=== PATIENT | male | born 1945 | race Caucasian/White ===

== ENCOUNTER → 2017-12-25 07:26 | Outpatient (CLI) | payer MEDICARE, SELFPAY ==
[2017-12-25 09:43] LABS: Alanine Aminotransferase 29 IU/L (21-72); Albumin 4.2 g/dL (3.5-5.0); Albumin Globulin Ratio 1.7 (1.0-2.8); Alkaline Phosphatase 89 U/L (38-126); Aspartate Aminotransferase 33 IU/L (17-59); Bilirubin Total 0.4 mg/dL (0.2-1.3); Blood Urea Nitrogen 25 mg/dL (9-20); Calcium 9.3 mg/dL (8.4-10.2); Carbon Dioxide 30 mmol/L (22-32); Chloride 105 mmol/L (98-107); Estimated Glomerular Filt Rate > 60.0 mL/min (>60); Globulin 2.5 g/dL (1.7-4.1); Glucose 91 mg/dL (80-110); HEMOLYSIS < 15 (0-50); Potassium 4.6 mmol/L (3.4-5.1); Sodium 142 mmol/L (137-145); Total Protein 6.7 g/dL (6.3-8.2)
== END ==
PROVIDERS: Visit Provider Physician Assistant
DX: B35.1 Tinea unguium (principal)
CPT/HCPCS: 36415; 80053

== ENCOUNTER 2018-05-13 08:20 | Day surgery (SDC) | payer MEDICARE, SELFPAY ==
[2018-05-13 08:37] VITALS: BMI 22.8
[2018-05-13 08:40] VITALS: BP 143/77; PULSE 69; RESP 15; TEMP 36.4; O2SAT 96
--- NOTE | 2018-05-13 09:14 | PM.HP.1 ---
History of Present Illness Date Patient Seen: 05/13/18 Time Patient Seen: 09:14 Chief complaint: COLONOSCOPY [id number] Narrative: History of adenomatous colon polyps Patient History Medical History Hypothyroidism (Acute) Social History household members: spouse Family & Social History Social History: household members spouse Meds Home Medications Medication Instructions Recorded Confirmed Type levothyroxine 100 mcg PO DAILY 05/13/18 05/13/18 History ranitidine HCl 150 mg PO BEDTIME 05/13/18 05/13/18 History Allergies Allergy/AdvReac Type Severity Reaction Status Date / Time No Known Drug Allergies Allergy Verified 05/13/18 08:36 Exam Vital Signs (past 8 hours): - 05/13/18 08:40 Temperature 97.5 F L Pulse Rate 69 Respiratory Rate 15 Blood Pressure 143/77 H Pulse Oximetry 96 Oxygen Delivery Method Room Air Narrative Exam Narrative: Oropharynx free of lesions Chest clear to auscultation percussion Cardiac exam reveals no S3 or murmur Assessment & Plan Assessment & Plan narrative: History of adenomatous colon polyps need for follow-up colonoscopy. Risks, benefits, alternatives have been explained
--- NOTE | 2018-05-13 09:15 | PM.OP.ENDO ---
Operative Date/Time/Diagnoses Date of procedure: 05/13/18 Time of procedure: 09:15 Pre-op diagnosis: See indications and findings Procedure & Clinicians Study performed: Colonoscopy Same procedure as scheduled: Yes Indications: History of adenomatous colon polyps Surgeon: Dashawn Lynn Procedure Notes Procedure in detail: After informed consent was obtained the patient was placed in left lateral decubitus position. The video colonoscope was introduced to the rectum slowly advanced to the cecum. Preparation was good. On slow withdrawal mucosa was carefully examined. The scope was removed. The patient tolerated procedure well. Blood loss none Complications none Sedation Total sedation time 23 min Fentanyl 150 mcg Versed 8 mg IV titration Findings Scattered left-sided diverticulosis, minor. Otherwise negative colonoscopy to cecum Patient should have follow-up colonoscopy in 5 years given his history of adenomatous colon polyps.
[2018-05-13] MEDS: MIDAZOLAM 5 MG/5 ML VIAL IV (09:53)
[2018-05-13] MEDS: fentaNYL 250 MCG/5 ML INJ IV (09:53)
[2018-05-13 10:31] VITALS: BP 99/62; PULSE 51; RESP 8
[2018-05-13 10:46] VITALS: BP 116/67; PULSE 51; RESP 10; O2SAT 96
[2018-05-13] MEDS: SODIUM CHLORIDE 0.9% 1,000 ML 21 ML IV (11:00)
[2018-05-13 11:01] VITALS: BP 110/75; PULSE 79; RESP 11; TEMP 36.6; O2SAT 96
--- NOTE | 2018-05-13 11:03 | SUR.PHASEI ---
stable pacu stay just very slow to wake up.
[2018-05-13 11:08] VITALS: BP 115/66; PULSE 51; RESP 13; TEMP 36.7; O2SAT 95
[2018-05-13 12:41] VITALS: BP 123/77; PULSE 50; TEMP 36.3; O2SAT 100
== END 2018-05-13 11:26 | disposition home or self-care (01) ==
PROVIDERS: PCP Internal Medicine; Visit Provider Internal Medicine Gastroenterology
PROC: 0DJD8ZZ Inspection of Lower Intestinal Tract, Via Natural or Artificial Opening Endoscopic (ICD-10-PCS; CPT 45378; principal; 2018-05-13 09:30)
DX: Z86.010 Personal history of colon polyps (principal); K57.30 Diverticulosis of large intestine without perforation or abscess without bleeding; E03.9 Hypothyroidism, unspecified
CPT/HCPCS: G0105; J2250; J3010

== ENCOUNTER → 2019-04-29 06:53 | Outpatient (CLI) | payer MEDICARE, SELFPAY ==
[2019-04-29 08:14] LABS: Add Manual Diff / Slide Review NO; Basophils Absolute Auto 100 /uL (0-100); Basophils Percent Auto 1.7 % (0-2); Eosinophils Absolute Auto 300 /uL (0-450); Eosinophils Percent Auto 4.6 % (2-4); Hematocrit 44.1 % (41-53); Hemoglobin 14.9 g/dL (13.5-17.5); Lymphocytes Absolute Auto 1700 /uL (1100-4500); Lymphocytes Percent Auto 25.7 % (25-40); Mean Corpuscular HGB Conc 33.7 % (30-36); Mean Corpuscular Hemoglobin 31.5 PG (26-34); Mean Corpuscular Volume 93.5 fL (80-100); Monocytes Absolute Auto 600 /uL (0-900); Monocytes Percent Auto 9.4 % (3-14); Neutrophils Absolute Auto 4000 /uL (1500-7000); Neutrophils Percent Auto 58.6 % (50-75); Platelet Count 241 X10^3/uL (150-400); Red Blood Cell Count 4.72 X10^6/uL (4.5-5.9); Red Cell Distribution Width 13.6 % (11.6-14.8); White Blood Cell Count 6.8 X10^3/uL (4.5-11.0)
[2019-04-29 08:28] LABS: Alanine Aminotransferase 14 IU/L (<50); Albumin 4.1 g/dL (3.5-5.0); Albumin Globulin Ratio 1.5 (1.0-2.8); Alkaline Phosphatase 81 U/L (38-126); Aspartate Aminotransferase 28 IU/L (17-59); Bilirubin Total 0.5 mg/dL (0.2-1.3); Blood Urea Nitrogen 23 mg/dL (9-20); Calcium 9.2 mg/dL (8.4-10.2); Carbon Dioxide 29 mmol/L (22-32); Chloride 102 mmol/L (98-107); Estimated Glomerular Filt Rate > 60.0 mL/min (>60); Globulin 2.8 g/dL (1.7-4.1); Glucose 93 mg/dL (80-110); HEMOLYSIS < 15 (0-50); Potassium 3.8 mmol/L (3.4-5.1); Sodium 137 mmol/L (137-145); Total Protein 6.9 g/dL (6.3-8.2)
== END ==
PROVIDERS: PCP Internal Medicine; Referring Provider Physician Assistant; Visit Provider Physician Assistant
DX: B35.1 Tinea unguium (principal)
CPT/HCPCS: 36415; 80053; 85025

== ENCOUNTER → 2020-02-09 11:51 | Outpatient (CLI) | payer MEDICARE, SELFPAY ==
--- NOTE | 2020-02-09 | DI.MRI.S_ITS ---
PROCEDURE: MR ANKLE RT WO CON INDICATIONS: Strain of unspecified muscle and tendon at ankle TECHNIQUE: Noncontrast sagittal T1 spin echo and T2 fast spin echo with fat saturation, axial proton density fast spin echo and T2 fast spin echo with fat saturation, coronal T1 spin echo and T2 fast spin echo with fat saturation through the ankle/hindfoot. COMPARISON: [facility] [place], CR, XR ANKLE 3 VIEWS WEIGHT BEARING RIGHT, 01/28/2020, 9:39. FINDINGS: Image quality: There is mild inhomogeneous fat saturation. Bones and joints: No bone marrow contusions or fractures. There is mild tibiotalar joint degeneration with mild osteophytosis. No hindfoot coalitions. No osteochondral lesions of the talar dome. No pathologic joint effusions. There is mild edema along the posterior aspect of the tibiotalar joint. Medial structures: The posterior tibialis, flexor digitorum longus, and flexor hallucis longus tendons are intact. There is a low-lying flexor hallucis longus muscle belly. The posterior tibial neurovascular bundle appears normal within the tarsal tunnel, without extrinsic mass effect. The deltoid and spring ligaments appear intact. Lateral structures: The anterior talofibular, calcaneofibular, and posterior talofibular ligaments appear intact. More superiorly, the anterior and posterior tibiofibular ligaments also appear intact, as is the intermalleolar ligament. The tibiofibular syndesmosis is normal in width at 2 mm or less. There is degeneration along the distal tibial fibular syndesmosis with mild osteophytosis. The peroneus longus and brevis tendons demonstrate normal location and morphology. Adjacent bony peroneal tubercle and retrotrochlear prominence are normal in size. The sinus tarsi demonstrates effacement of the normal fatty signal with mild edema and an associated multiloculated ganglion cyst extending laterally. The calcaneonavicular and calcaneocuboid components of the bifurcate ligament appear intact. The dorsal calcaneocuboid ligament appears intact. Anterior structures: The tibialis anterior, extensor hallucis longus, and extensor digitorum longus tendons appear intact. The dorsal talonavicular ligament appears intact. Posterior and plantar structures: Achilles tendon is intact. Medial and lateral bands of the plantar fascia are of normal thickness. No abductor digiti quinti muscle atrophy to suggest [place] neuropathy. IMPRESSION: 1. Mild tibiotalar joint degeneration with mild periarticular edema posteriorly. 2. Low lying muscle belly of the flexor hallucis longus is nonspecific but may be associated with posterior impingement in the appropriate clinical context. 3. Effacement of normal fatty signal in the sinus tarsi with mild edema and associated multi loculated ganglion cysts extending laterally. 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 Recommend correlation clinically. Dictated by: Maximus Armstrong M.D. on 02/09/2020 at 16:52 Approved by: Maximus Armstrong M.D. on 02/09/2020 at 17:05
== END ==
PROVIDERS: PCP Internal Medicine; Referring Provider Internal Medicine; Visit Provider Orthopaedic Surgery
DX: M19.071 Primary osteoarthritis, right ankle and foot (principal); M25.571 Pain in right ankle and joints of right foot
CPT/HCPCS: 73721

== ENCOUNTER → 2020-03-30 14:56 | Outpatient (ROUT) | payer MEDICARE, SELFPAY ==
[2020-03-30 15:49] LABS: Aspartate Aminotransferase 33 IU/L (17-59); BUN Creatinine Ratio 21.2 (6-22); Blood Urea Nitrogen 22 mg/dL (9-20); Calcium 9.2 mg/dL (8.4-10.2); Carbon Dioxide 30 mmol/L (22-32); Chloride 105 mmol/L (98-107); Cholesterol 158 mg/dL (140-199); Estimated Glomerular Filt Rate > 60.0 mL/min (>60); Glucose 94 mg/dL (80-110); HDL Cholesterol 57 mg/dL (40-60); HEMOLYSIS < 15 (0-50); LDL Cholesterol Calculated 86 mg/dL (<100); Potassium 4.6 mmol/L (3.4-5.1); Sodium 138 mmol/L (137-145); Triglycerides 77 mg/dL (35-150)
[2020-03-30 16:15] LABS: Prostate Specific Antigen 0.862 ng/mL (0.10-4.00)
[2020-03-30 16:16] LABS: TSH w/ Reflex to FT4 1.11 uIU/mL (0.47-4.68)
== END ==
PROVIDERS: PCP Internal Medicine; Visit Provider Internal Medicine
DX: N40.0 Benign prostatic hyperplasia without lower urinary tract symptoms (principal); E03.9 Hypothyroidism, unspecified; E78.2 Mixed hyperlipidemia
CPT/HCPCS: 80048; 80061; 84153; 84443; 84450

== ENCOUNTER 2022-01-19 15:32 | Emergency (ER) | payer MEDICARE, SELFPAY ==
[2022-01-19] VITALS (15 sets, daily range): BP systolic 152–202; BP diastolic 75–108; PULSE 47–60; RESP 16–33; TEMP 36.6; O2SAT 70–100; BMI 22.8
--- NOTE | 2022-01-19 18:12 | ED_ITS ---
HPI - Extremity Problem <CHER Dias - Last Filed: 01/20/22 09:16> General Chief complaint: Extremity Problem,Nontraumatic Stated complaint: LEFT ARM PAIN Time Seen by Provider: 01/19/22 17:52 Source: patient Mode of arrival: Ambulatory History of Present Illness HPI Narrative: This is a 76-year-old male with history of hypertension, not on antihypertensives who presents to the emergency department complaining of intermittent left arm numbness and tingling that occurred today, states it was after a hard workout. Denies any history of coronary artery disease, denies any cardiac event. Denies any chest pain, shortness of breath, difficulty breathing, nausea, vomiting, other symptom. He denies any swelling in his lower extremities, shortness of breath, denies any symptoms. He states that he had COVID illness 1 month ago but has resolved from his symptoms. Patient states that he works out every day, is a runner, had a lifting workout yesterday and a tough aerobic workout this morning. He has not had a cardiac stress test, only medication he takes levothyroxine. Related Data Home Medications Medication Instructions Recorded Confirmed levothyroxine 100 mcg tablet 100 mcg PO DAILY 05/13/18 05/13/18 ranitidine HCl 150 mg capsule 150 mg PO BEDTIME 05/13/18 05/13/18 Allergies Allergy/AdvReac Type Severity Reaction Status Date / Time No Known Drug Allergies Allergy Verified 05/13/18 08:36 Review of Systems <CHER Dias - Last Filed: 01/20/22 09:16> Review of Systems Narrative: Review of systems is negative for acute abnormalities unless otherwise noted in HPI Patient History <CHER Dias - Last Filed: 01/20/22 09:16> Medical History Hypothyroidism Social History household members: spouse Smoking Status: Never smoker Smoking Status: Never smoker Substance Use Type: does not use Exam <CHER Dias - Last Filed: 01/20/22 09:16> Narrative Exam Narrative: Reviewed vitals signs and nursing notes. General: cooperative, comfortable, in no acute distress, well groomed HEENT: symmetrical facial expressions, moist mucous membranes Cardiovascular: Bradycardic and irregular rate and rhythm, AFib on the monitor and on EKG, no prior a atrial fibrillation findings no murmur, no additional sounds, without peripheral edema, warm extremities Respiratory: normal effort, able to speak in complete sentences, without wheezing, stridor, or abnormal breath sounds. No retractions or tachypnea. GI: abdomen soft, nontender to palpation, nondistended, without masses, rebound tenderness or exquisite tenderness with exam. MSK: moves all extremities, neurovascularly intact, no weakness, normal tone Skin: brisk capillary refill, without pallor or erythema Neuro: normal speech and cognition, A&O x3, ambulatory, clear speech Psych: mental status is grossly normal, congruent mood, normal affect, pleasant and cooperative Initial Vital Signs Initial Vital Signs: Vital Signs Temperature 98 F 01/19/22 16:13 Pulse Rate 59 L 01/19/22 16:13 Respiratory Rate 16 01/19/22 16:13 Blood Pressure 184/87 H 01/19/22 16:13 Pulse Oximetry 100 01/19/22 16:13 Oxygen Delivery Method 01/19/22 16:13 <Doreen Paris DO - Last Filed: 01/20/22 05:14> Initial Vital Signs Initial Vital Signs: Vital Signs Temperature 98 F 01/19/22 16:13 Pulse Rate 59 L 01/19/22 16:13 Respiratory Rate 16 01/19/22 16:13 Blood Pressure 184/87 H 01/19/22 16:13 Pulse Oximetry 100 01/19/22 16:13 Oxygen Delivery Method 01/19/22 16:13 Scores <CHER Dias - Last Filed: 01/20/22 09:16> CHADS-VASc Congestive heart failure: yes Hypertension: yes Age 75 years or older: yes Diabetes mellitus: no Stroke, TIA, or TE: no Vascular disease: no Age 65 to 74 years: no Sex category (female): Male CHADS-VASc Score: 4 HEART Score Heart Score history: Slightly Suspicious Heart Score EKG: Normal Heart Score Age: > or = 65 years old Heart Score risk factors: No known risk factors Heart Score troponin: < or = to normal limit Heart Score Total: 2 Wells' Criteria for PE Clinical signs and symptoms of DVT: No PE is #1 Dx or equally likely: Yes Heart rate > 100: No Immobilization at least 3 days or surg in previous 4 weeks: No History of PE or DVT: No Hemoptysis: No Malignancy w/Treatment within 6 months or palliative: No Wells' PE Score total: 3 <Doreen Paris DO - Last Filed: 01/20/22 05:14> CHADS-VASc CHADS-VASc Score: 4 HEART Score Heart Score Total: 2 Wells' Criteria for PE Wells' PE Score total: 3 Course <CHER Dias - Last Filed: 01/20/22 09:16> Orders Ordered: Discontinued Medications Aspirin (Aspirin 325 Mg Tablet) 325 mg PO NOW ONE Stop: 01/19/22 18:13 Last Admin: 01/19/22 18:56 Dose: Not Given Documented By: GLENN Aspirin (Aspirin 81 Mg Chew Tab) 324 mg PO NOW ONE Stop: 01/19/22 18:23 Last Admin: 01/19/22 18:42 Dose: 324 mg Documented By: GLENN(2) Vital Signs Vital signs: Vital Signs - 8 hr 01/19/22 21:30 Pulse Rate 52 L Respiratory Rate 22 Pulse Oximetry 98 <Doreen Paris DO - Last Filed: 01/20/22 05:14> Orders Ordered: Discontinued Medications Aspirin (Aspirin 325 Mg Tablet) 325 mg PO NOW ONE Stop: 01/19/22 18:13 Last Admin: 01/19/22 18:56 Dose: Not Given Documented By: GLENN Aspirin (Aspirin 81 Mg Chew Tab) 324 mg PO NOW ONE Stop: 01/19/22 18:23 Last Admin: 01/19/22 18:42 Dose: 324 mg Documented By: GLENN(2) Consultations Consultation #1: Dr. Conn, cardiology. Rec's observations, stress testing, ECHO and anticoagulation with eliquis or similar medication. If patient chooses not to take full anticoagulation would recommend aspirin 325 mg daily. Time: 22:25 Vital Signs Vital signs: Vital Signs - 8 hr 01/19/22 21:30 Pulse Rate 52 L Respiratory Rate 22 Pulse Oximetry 98 MDM - Extremity (Nontraumatic) <CHER Dias - Last Filed: 01/20/22 09:16> Lab Data Result diagrams: 01/19/22 18:35 01/19/22 18:35 Labs: Lab Results 01/19/22 01/19/22 01/19/22 Range/Units 18:35 18:35 18:35 WBC 6.2 (4.5-11.0) X10^3/uL RBC 4.53 (4.5-5.9) X10^6/uL Hgb 14.5 (13.5-17.5) g/dL Hct 42.5 (41-53) % MCV 93.8 (80-100) fL MCH 32.1 (26-34) PG MCHC 34.2 (30-36) % RDW 14.1 (11.6-14.8) % Plt Count 226 (150-400) X10^3/uL Neut % (Auto) 64.2 (50-75) % Lymph % (Auto) 23.5 L (25-40) % [place] % (Auto) 10.1 (3-14) % Eos % (Auto) 1.3 L (2-4) % Baso % (Auto) 0.9 (0-2) % Neut # (Auto) 4000 (6730-5256) /uL Lymph # (Auto) 1400 (7598-8440) /uL [place] # (Auto) 600 (0-900) /uL Eos # (Auto) 100 (0-450) /uL Baso # (Auto) 100 (0-100) /uL PT (10.1-12.7) SECONDS INR (0.9-1.3) D-Dimer (<500) ng/ml Sodium 139 (137-145) mmol/L Potassium 4.2 (3.4-5.1) mmol/L Chloride 103 (98-107) mmol/L Carbon Dioxide 26 (22-32) mmol/L BUN 30 H (9-20) mg/dL Creatinine 1.07 (0.66-1.25) mg/dL Estimated GFR > 60 (>60) mL/min BUN/Creatinine Ratio 28.0 H (6-22) Glucose 94 (80-110) mg/dL Calcium 9.1 (8.4-10.2) mg/dL Magnesium 2.0 (1.6-2.3) mg/dL Total Bilirubin 0.3 (0.2-1.3) mg/dL AST 37 (17-59) IU/L ALT 27 (<50) IU/L Alkaline Phosphatase 103 (38-126) U/L Total Creatine Kinase 91 (55-170) U/L CK-MB (CK-2) TNP CK-MB (CK-2) Rel Index TNP Troponin I < 0.012 (0.01-0.034) ng/mL NT-Pro-B Natriuret Pep (<450) pg/mL Total Protein 7.3 (6.3-8.2) g/dL Albumin 4.5 (3.5-5.0) g/dL Globulin 2.8 (1.7-4.1) g/dL Albumin/Globulin Ratio 1.6 (1.0-2.8) Lipase (23-300) U/L TSH (0.47-4.68) uIU/mL 01/19/22 01/19/22 01/19/22 Range/Units 18:35 18:35 20:25 WBC (4.5-11.0) X10^3/uL RBC (4.5-5.9) X10^6/uL Hgb (13.5-17.5) g/dL Hct (41-53) % MCV (80-100) fL MCH (26-34) PG MCHC (30-36) % RDW (11.6-14.8) % Plt Count (150-400) X10^3/uL Neut % (Auto) (50-75) % Lymph % (Auto) (25-40) % [place] % (Auto) (3-14) % Eos % (Auto) (2-4) % Baso % (Auto) (0-2) % Neut # (Auto) (5862-7664) /uL Lymph # (Auto) (6981-1288) /uL [place] # (Auto) (0-900) /uL Eos # (Auto) (0-450) /uL Baso # (Auto) (0-100) /uL PT 13.9 H (10.1-12.7) SECONDS INR 1.2 (0.9-1.3) D-Dimer 2610 H (<500) ng/ml Sodium (137-145) mmol/L Potassium (3.4-5.1) mmol/L Chloride (98-107) mmol/L Carbon Dioxide (22-32) mmol/L BUN (9-20) mg/dL Creatinine (0.66-1.25) mg/dL Estimated GFR (>60) mL/min BUN/Creatinine Ratio (6-22) Glucose (80-110) mg/dL Calcium (8.4-10.2) mg/dL Magnesium (1.6-2.3) mg/dL Total Bilirubin (0.2-1.3) mg/dL AST (17-59) IU/L ALT (<50) IU/L Alkaline Phosphatase (38-126) U/L Total Creatine Kinase (55-170) U/L CK-MB (CK-2) CK-MB (CK-2) Rel Index Troponin I (0.01-0.034) ng/mL NT-Pro-B Natriuret Pep 731 H (<450) pg/mL Total Protein (6.3-8.2) g/dL Albumin (3.5-5.0) g/dL Globulin (1.7-4.1) g/dL Albumin/Globulin Ratio (1.0-2.8) Lipase 162 (23-300) U/L TSH 2.90 (0.47-4.68) uIU/mL 01/19/22 Range/Units 20:25 WBC (4.5-11.0) X10^3/uL RBC (4.5-5.9) X10^6/uL Hgb (13.5-17.5) g/dL Hct (41-53) % MCV (80-100) fL MCH (26-34) PG MCHC (30-36) % RDW (11.6-14.8) % Plt Count (150-400) X10^3/uL Neut % (Auto) (50-75) % Lymph % (Auto) (25-40) % [place] % (Auto) (3-14) % Eos % (Auto) (2-4) % Baso % (Auto) (0-2) % Neut # (Auto) (6454-3407) /uL Lymph # (Auto) (0133-9433) /uL [place] # (Auto) (0-900) /uL Eos # (Auto) (0-450) /uL Baso # (Auto) (0-100) /uL PT (10.1-12.7) SECONDS INR (0.9-1.3) D-Dimer (<500) ng/ml Sodium (137-145) mmol/L Potassium (3.4-5.1) mmol/L Chloride (98-107) mmol/L Carbon Dioxide (22-32) mmol/L BUN (9-20) mg/dL Creatinine (0.66-1.25) mg/dL Estimated GFR (>60) mL/min BUN/Creatinine Ratio (6-22) Glucose (80-110) mg/dL Calcium (8.4-10.2) mg/dL Magnesium (1.6-2.3) mg/dL Total Bilirubin (0.2-1.3) mg/dL AST (17-59) IU/L ALT (<50) IU/L Alkaline Phosphatase (38-126) U/L Total Creatine Kinase 86 (55-170) U/L CK-MB (CK-2) TNP CK-MB (CK-2) Rel Index TNP Troponin I < 0.012 (0.01-0.034) ng/mL NT-Pro-B Natriuret Pep (<450) pg/mL Total Protein (6.3-8.2) g/dL Albumin (3.5-5.0) g/dL Globulin (1.7-4.1) g/dL Albumin/Globulin Ratio (1.0-2.8) Lipase (23-300) U/L TSH (0.47-4.68) uIU/mL Imaging Data Chest x-ray: Radiologist's Impression: PROCEDURE:? XR CHEST 1V ? INDICATIONS:? new onset a fib ? TECHNIQUE:? One view of the chest was acquired.? ? COMPARISON:? None. ? FINDINGS:? ? Surgical changes and devices:? None.? ? Lungs and pleura:? Lungs are clear.? No pleural effusions or pneumothorax.? ? Mediastinum:? Mediastinal contours appear normal.? Heart size is normal.? ? Bones and chest wall:? No suspicious bony lesions.? Overlying soft tissues appear unremarkable.? ? IMPRESSION:? No acute cardiopulmonary abnormality. ? ? ? Dictated by: Maksim Jiménez M.D. on 01/19/2022 at 18:39 ? ? Approved by: Maksim Jiménez M.D. on 01/19/2022 at 18:40 ? ECG Data Interpretation: EKG independently reviewed by myself at 1810 and shows atrial fibrillation with a rate of 48 bpm with regular axis and intervals. No STEMI, ST segment changes, arrhythmia, or acute ischemic changes. MDM Narrative Medical decision making narrative: This is a 76-year-old male who presents to the emergency department for 1 episode of left arm numbness and tingling which occurred this morning. He thought it was from working out hard yesterday, has a bradycardic heart rate at baseline, states his max heart rate is approximately 155. Patient works out every day as a runner, he denies any history of coronary artery disease, has never had a cardiac event. Has a history of hypertension but is not on antihypertensive, he states it is white coat syndrome most of the time. Today in the emergency department he was hypertensive initially, EKG was ordered and was positive for new finding of atrial fibrillation with slow ventricular rate. His lab work is pertinent for a elevated D-dimer of 2610, and elevated BNP of 731 without troponin elevation, electrolyte abnormality, anemia, leukocytosis, shortness of breath, or other systemic symptom. Patient had 1 episode of left arm numbness and does not have any other symptoms. His chest x-ray is negative for acute cardiopulmonary finding. CT angio PE <Doreen Paris, DO - Last Filed: 01/20/22 05:14> Lab Data Labs: Lab Results 01/19/22 01/19/22 01/19/22 Range/Units 18:35 18:35 18:35 WBC 6.2 (4.5-11.0) X10^3/uL RBC 4.53 (4.5-5.9) X10^6/uL Hgb 14.5 (13.5-17.5) g/dL Hct 42.5 (41-53) % MCV 93.8 (80-100) fL MCH 32.1 (26-34) PG MCHC 34.2 (30-36) % RDW 14.1 (11.6-14.8) % Plt Count 226 (150-400) X10^3/uL Neut % (Auto) 64.2 (50-75) % Lymph % (Auto) 23.5 L (25-40) % [place] % (Auto) 10.1 (3-14) % Eos % (Auto) 1.3 L (2-4) % Baso % (Auto) 0.9 (0-2) % Neut # (Auto) 4000 (7804-8366) /uL Lymph # (Auto) 1400 (0891-8395) /uL [place] # (Auto) 600 (0-900) /uL Eos # (Auto) 100 (0-450) /uL Baso # (Auto) 100 (0-100) /uL PT (10.1-12.7) SECONDS INR (0.9-1.3) D-Dimer (<500) ng/ml Sodium 139 (137-145) mmol/L Potassium 4.2 (3.4-5.1) mmol/L Chloride 103 (98-107) mmol/L Carbon Dioxide 26 (22-32) mmol/L BUN 30 H (9-20) mg/dL Creatinine 1.07 (0.66-1.25) mg/dL Estimated GFR > 60 (>60) mL/min BUN/Creatinine Ratio 28.0 H (6-22) Glucose 94 (80-110) mg/dL Calcium 9.1 (8.4-10.2) mg/dL Magnesium 2.0 (1.6-2.3) mg/dL Total Bilirubin 0.3 (0.2-1.3) mg/dL AST 37 (17-59) IU/L ALT 27 (<50) IU/L Alkaline Phosphatase 103 (38-126) U/L Total Creatine Kinase 91 (55-170) U/L CK-MB (CK-2) TNP CK-MB (CK-2) Rel Index TNP Troponin I < 0.012 (0.01-0.034) ng/mL NT-Pro-B Natriuret Pep (<450) pg/mL Total Protein 7.3 (6.3-8.2) g/dL Albumin 4.5 (3.5-5.0) g/dL Globulin 2.8 (1.7-4.1) g/dL Albumin/Globulin Ratio 1.6 (1.0-2.8) Lipase (23-300) U/L TSH (0.47-4.68) uIU/mL 01/19/22 01/19/22 01/19/22 Range/Units 18:35 18:35 20:25 WBC (4.5-11.0) X10^3/uL RBC (4.5-5.9) X10^6/uL Hgb (13.5-17.5) g/dL Hct (41-53) % MCV (80-100) fL MCH (26-34) PG MCHC (30-36) % RDW (11.6-14.8) % Plt Count (150-400) X10^3/uL Neut % (Auto) (50-75) % Lymph % (Auto) (25-40) % [place] % (Auto) (3-14) % Eos % (Auto) (2-4) % Baso % (Auto) (0-2) % Neut # (Auto) (6682-3202) /uL Lymph # (Auto) (5187-3596) /uL [place] # (Auto) (0-900) /uL Eos # (Auto) (0-450) /uL Baso # (Auto) (0-100) /uL PT 13.9 H (10.1-12.7) SECONDS INR 1.2 (0.9-1.3) D-Dimer 2610 H (<500) ng/ml Sodium (137-145) mmol/L Potassium (3.4-5.1) mmol/L Chloride (98-107) mmol/L Carbon Dioxide (22-32) mmol/L BUN (9-20) mg/dL Creatinine (0.66-1.25) mg/dL Estimated GFR (>60) mL/min BUN/Creatinine Ratio (6-22) Glucose (80-110) mg/dL Calcium (8.4-10.2) mg/dL Magnesium (1.6-2.3) mg/dL Total Bilirubin (0.2-1.3) mg/dL AST (17-59) IU/L ALT (<50) IU/L Alkaline Phosphatase (38-126) U/L Total Creatine Kinase (55-170) U/L CK-MB (CK-2) CK-MB (CK-2) Rel Index Troponin I (0.01-0.034) ng/mL NT-Pro-B Natriuret Pep 731 H (<450) pg/mL Total Protein (6.3-8.2) g/dL Albumin (3.5-5.0) g/dL Globulin (1.7-4.1) g/dL Albumin/Globulin Ratio (1.0-2.8) Lipase 162 (23-300) U/L TSH 2.90 (0.47-4.68) uIU/mL 01/19/22 Range/Units 20:25 WBC (4.5-11.0) X10^3/uL RBC (4.5-5.9) X10^6/uL Hgb (13.5-17.5) g/dL Hct (41-53) % MCV (80-100) fL MCH (26-34) PG MCHC (30-36) % RDW (11.6-14.8) % Plt Count (150-400) X10^3/uL Neut % (Auto) (50-75) % Lymph % (Auto) (25-40) % [place] % (Auto) (3-14) % Eos % (Auto) (2-4) % Baso % (Auto) (0-2) % Neut # (Auto) (8135-9036) /uL Lymph # (Auto) (8517-2404) /uL [place] # (Auto) (0-900) /uL Eos # (Auto) (0-450) /uL Baso # (Auto) (0-100) /uL PT (10.1-12.7) SECONDS INR (0.9-1.3) D-Dimer (<500) ng/ml Sodium (137-145) mmol/L Potassium (3.4-5.1) mmol/L Chloride (98-107) mmol/L Carbon Dioxide (22-32) mmol/L BUN (9-20) mg/dL Creatinine (0.66-1.25) mg/dL Estimated GFR (>60) mL/min BUN/Creatinine Ratio (6-22) Glucose (80-110) mg/dL Calcium (8.4-10.2) mg/dL Magnesium (1.6-2.3) mg/dL Total Bilirubin (0.2-1.3) mg/dL AST (17-59) IU/L ALT (<50) IU/L Alkaline Phosphatase (38-126) U/L Total Creatine Kinase 86 (55-170) U/L CK-MB (CK-2) TNP CK-MB (CK-2) Rel Index TNP Troponin I < 0.012 (0.01-0.034) ng/mL NT-Pro-B Natriuret Pep (<450) pg/mL Total Protein (6.3-8.2) g/dL Albumin (3.5-5.0) g/dL Globulin (1.7-4.1) g/dL Albumin/Globulin Ratio (1.0-2.8) Lipase (23-300) U/L TSH (0.47-4.68) uIU/mL Imaging Data CT scan - chest: Radiologist's Impression: Close Chest CTA (Signed) Nolan Montague - 01/19/22 Chest X-Ray (Signed) Maksim Jiménez - 01/19/22 [facility]?[place] [address] CT Scan Report Signed Patient: Tulio Guzmán MR#: [id number] : 1945 Acct:[id number] Age/Sex: 76 / M Date of Service: 01/19/22 Loc: ED Accession Number: [id number] ?? Procedure: CT angio chest PE protocol Ordering Provider: Radha Wilcox PROCEDURE:? CT ANGIO CHEST PE PROTOCOL ? INDICATIONS:? elevated D dimer ? TECHNIQUE:? After the administration of intravenous contrast, 2 mm thick sections acquired from the pulmonary apices to the posterior costophrenic angles.? 3-dimensional maximum intensity projection (MIP) coronal and sagittal reformats were then acquired through the thorax.? For radiation dose reduction, the following was used:? automated exposure control, adjustment of mA and/or kV according to patient size.? ? COMPARISON:? None. ? FINDINGS:? Image quality:? Excellent.? ? Pulmonary arteries:? Pulmonary arteries are normal in size, and demonstrate no intraluminal filling defects to suggest central pulmonary embolism.? ? Lungs and pleura:? Lungs are clear.? No pleural effusions or pneumothorax.? Central and peripheral airways are patent.? ? Mediastinum:? Heart size is normal, without pericardial effusion.? No mediastinal or hilar adenopathy.? Thoracic aorta is normal in caliber and enhancement.? Esophagus is normal in caliber, without hiatal hernia.? ? Bones and chest wall:? No suspicious bony lesions.? Ribs and thoracic spine appear intact throughout.? Thyroid gland appears normal where well seen.? No axillary or supraclavicular adenopathy.? ? Abdomen:? Visualized upper abdominal solid organs appear normal in the early arterial phase of enhancement.? ? IMPRESSION:? No evidence of pulmonary embolus or pneumonia, no acute disease. ? ? Dictated by: Nolan Montague M.D. on 01/19/2022 at 20:59 ? ? Approved by: Nolan Montague M.D. on 01/19/2022 at 21:00?? ECG Data Interpretation: EKG independently reviewed by myself at 1810 and shows atrial fibrillation with a rate of 48 bpm with regular axis and intervals. No STEMI, ST segment changes, arrhythmia, or acute ischemic changes. Mank: EKG number shows AFib with slow response with a rate of 48 QRS 82 and QTC of 419. No acute ST changes appreciated. EKG 2 shows AFib slow response with rate of 46 QRS 82 QTC 386 with no acute change. MDM Narrative Medical decision making narrative: This is a 76-year-old male who presents to the emergency department for 1 episod e of left arm numbness and tingling which occurred this morning. He thought it was from working out hard yesterday, has a bradycardic heart rate at baseline, states his max heart rate is approximately 155. Patient works out every day as a runner, he denies any history of coronary artery disease, has never had a cardiac event. Has a history of hypertension but is not on antihypertensive, he states it is white coat syndrome most of the time. Today in the emergency department he was hypertensive initially, EKG was ordered and was positive for new finding of atrial fibrillation with slow ventricular rate. His lab work is pertinent for a elevated D-dimer of 2610, and elevated BNP of 731 without troponin elevation, electrolyte abnormality, anemia, leukocytosis, shortness of breath, or other systemic symptom. Patient had 1 episode of left arm numbness and does not have any other symptoms. His chest x-ray is negative for acute cardiopulmonary finding. CT angio PE -is negative. Discussed with patient would like to keep for observation, echo, stress testing and discussed anticoagulation, discussed recommendations from Cardiology which include all of these and a stronger anticoagulants such as Eliquis for Pradaxa would be recommended based on his chads Vasc score. Patient is headed for [place] on Friday morning and he does not wish to be in the hospital. He defers but is open to taking a full-dose aspirin. I spoke with Cardiology and they will reach out to the patient to set up follow-up and workup as an outpatient. We did discuss risks versus benefits unclear how long patient has been in atrial fibrillation he also did have his left arm extremity pain and this could be a cardiac equivalent although troponins are negative this has not ruled out cardiac event. Patient and are both at bedside and are aware recommendations. Discharge Plan Departure Patient Disposition: Home Clinical Impression: Elevated brain natriuretic peptide (BNP) level Atrial fibrillation Qualifiers: Atrial fibrillation type: unspecified Qualified Code(s): I48.91 - Unspecified atrial fibrillation Instructions: Shoulder Tendinopathy Activity Restrictions/Additional Instructions: Please follow-up with cardiology you have been found to be in AFib with a slow response. They do recommend that you stay for stress testing and ECHO in the hospital and be started on anticoagulation such as Eliquis or a similar anticoagulant as do I. You can take aspirin 325 mg daily instead but this does not fully protect you from stroke. Dr. Conn with cardiology will reach out to you to set up follow-up for appropriate workup. If you have not heard from them by Friday or Friday please call the office. Please return for new or worsening symptoms recurrent arm pain, chest pain, shortness of breath, lightheadedness or passing out, new swelling in your extremities or other new or concerning changes. Prescriptions: No Action levothyroxine 100 mcg Tablet 100 mcg PO DAILY ranitidine HCl 150 mg Capsule 150 mg PO BEDTIME Referrals: Polo Unger MD [Primary Care Provider] - Luma Conn MD [Physician] - Visit Report Forms: Patient Portal/API
--- NOTE | 2022-01-19 18:12 | DI.RAD.S_ITS ---
PROCEDURE: XR CHEST 1V INDICATIONS: new onset a fib TECHNIQUE: One view of the chest was acquired. COMPARISON: None. FINDINGS: Surgical changes and devices: None. Lungs and pleura: Lungs are clear. No pleural effusions or pneumothorax. Mediastinum: Mediastinal contours appear normal. Heart size is normal. Bones and chest wall: No suspicious bony lesions. Overlying soft tissues appear unremarkable. IMPRESSION: No acute cardiopulmonary abnormality. Dictated by: Maksim Jiménez M.D. on 01/19/2022 at 18:39 Approved by: Maksim Jiménez M.D. on 01/19/2022 at 18:40
[2022-01-19] MEDS: ASPIRIN 81 MG CHEW TAB 324 MG PO (18:42)
[2022-01-19 19:02] LABS: Creatine Kinase 91 U/L (55-170)
[2022-01-19 19:07] LABS: Alanine Aminotransferase 27 IU/L (<50); Albumin 4.5 g/dL (3.5-5.0); Albumin Globulin Ratio 1.6 (1.0-2.8); Alkaline Phosphatase 103 U/L (38-126); Aspartate Aminotransferase 37 IU/L (17-59); Bilirubin Total 0.3 mg/dL (0.2-1.3); Blood Urea Nitrogen 30 mg/dL (9-20); Calcium 9.1 mg/dL (8.4-10.2); Carbon Dioxide 26 mmol/L (22-32); Chloride 103 mmol/L (98-107); Estimated Glomerular Filt Rate > 60 mL/min (>60); Globulin 2.8 g/dL (1.7-4.1); Glucose 94 mg/dL (80-110); HEMOLYSIS < 15 (0-50); Potassium 4.2 mmol/L (3.4-5.1); Sodium 139 mmol/L (137-145); Total Protein 7.3 g/dL (6.3-8.2)
[2022-01-19 19:08] LABS: Lipase 162 U/L (23-300)
[2022-01-19 19:14] LABS: Troponin I < 0.012 ng/mL (0.01-0.034)
--- NOTE | 2022-01-19 19:15 | PC.NURSE ---
Report received - assumed care of pt at this time - resting quietly in NAD - no needs voiced - remains in atrial fibrillation at a rate in the 40's
[2022-01-19 19:16] LABS: NT-proBNP (BNP-Adult 18+) 731 pg/mL (<450)
[2022-01-19 19:29] LABS: Add Manual Diff / Slide Review NO; Basophils Absolute Auto 100 /uL (0-100); Basophils Percent Auto 0.9 % (0-2); Eosinophils Absolute Auto 100 /uL (0-450); Eosinophils Percent Auto 1.3 % (2-4); Hematocrit 42.5 % (41-53); Hemoglobin 14.5 g/dL (13.5-17.5); Lymphocytes Absolute Auto 1400 /uL (1100-4500); Lymphocytes Percent Auto 23.5 % (25-40); Mean Corpuscular HGB Conc 34.2 % (30-36); Mean Corpuscular Hemoglobin 32.1 PG (26-34); Mean Corpuscular Volume 93.8 fL (80-100); Monocytes Absolute Auto 600 /uL (0-900); Monocytes Percent Auto 10.1 % (3-14); Neutrophils Absolute Auto 4000 /uL (1500-7000); Neutrophils Percent Auto 64.2 % (50-75); Platelet Count 226 X10^3/uL (150-400); Red Blood Cell Count 4.53 X10^6/uL (4.5-5.9); Red Cell Distribution Width 14.1 % (11.6-14.8); White Blood Cell Count 6.2 X10^3/uL (4.5-11.0)
[2022-01-19 19:31] LABS: INR 1.2 (0.9-1.3); Prothrombin Time 13.9 SECONDS (10.1-12.7)
[2022-01-19 19:33] LABS: D Dimer 2610 ng/ml (<500)
--- NOTE | 2022-01-19 20:02 | DI.CT.S_ITS ---
PROCEDURE: CT ANGIO CHEST PE PROTOCOL INDICATIONS: elevated D dimer TECHNIQUE: After the administration of intravenous contrast, 2 mm thick sections acquired from the pulmonary apices to the posterior costophrenic angles. 3-dimensional maximum intensity projection (MIP) coronal and sagittal reformats were then acquired through the thorax. For radiation dose reduction, the following was used: automated exposure control, adjustment of mA and/or kV according to patient size. COMPARISON: None. FINDINGS: Image quality: Excellent. Pulmonary arteries: Pulmonary arteries are normal in size, and demonstrate no intraluminal filling defects to suggest central pulmonary embolism. Lungs and pleura: Lungs are clear. No pleural effusions or pneumothorax. Central and peripheral airways are patent. Mediastinum: Heart size is normal, without pericardial effusion. No mediastinal or hilar adenopathy. Thoracic aorta is normal in caliber and enhancement. Esophagus is normal in caliber, without hiatal hernia. Bones and chest wall: No suspicious bony lesions. Ribs and thoracic spine appear intact throughout. Thyroid gland appears normal where well seen. No axillary or supraclavicular adenopathy. Abdomen: Visualized upper abdominal solid organs appear normal in the early arterial phase of enhancement. IMPRESSION: No evidence of pulmonary embolus or pneumonia, no acute disease. Dictated by: Nolan Montague M.D. on 01/19/2022 at 20:59 Approved by: Nolan Montague M.D. on 01/19/2022 at 21:00
--- NOTE | 2022-01-19 20:23 | PC.NURSE ---
EKG performed at this time by RT
--- NOTE | 2022-01-19 20:35 | PC.NURSE ---
To radiology via stretcher with tech
--- NOTE | 2022-01-19 20:45 | PC.NURSE ---
Returns to the room via w/c with tech
[2022-01-19 20:54] LABS: Creatine Kinase 86 U/L (55-170)
[2022-01-19 21:06] LABS: Troponin I < 0.012 ng/mL (0.01-0.034)
--- NOTE | 2022-01-19 21:30 | PC.NURSE ---
Resting quietly - eating and drinking at this time without concern - PWD with respirations equal and unlabored bilaterally - family at bedside - awaiting results
--- NOTE | 2022-01-19 22:10 | PC.NURSE ---
MD at bedside - family at bedside
== END 2022-01-19 22:48 | disposition home or self-care (01) ==
PROVIDERS: Nurse Practitioner Critical Care Medicine; Emergency Provider Emergency Medicine; PCP Internal Medicine
DX: I48.91 Unspecified atrial fibrillation (principal); R00.1 Bradycardia, unspecified; R79.89 Other specified abnormal findings of blood chemistry; I25.10 Atherosclerotic heart disease of native coronary artery without angina pectoris; Z86.16 Personal history of COVID-19
CPT/HCPCS: 36415; 71045; 71275; 80053; 82550; 83690; 83735; 83880; 84443; 84484; 85025; 85379; 85610; 93005; 99284; Q9967

== ENCOUNTER → 2022-02-08 07:50 | Outpatient (CLI) | payer MEDICARE, SELFPAY ==
--- NOTE | 2022-02-08 07:52 | DI.ECHO.S_ITS ---
[facility]---------+ [facility] +---------+ : : [address] : : : : [id number] : : : : Phone: [phone]+ Echocardiogram Report + + :Name: LILY LANTIGUA Study Date: 02/08/2022 Height: 69 in : :[facility] ReadingLocation: Weight: 155 lb : : Gender: Male BSA: 1.9 m2 : :: 1945 Age: 76 yrs BP: 168/93 mmHg: :Reason For Study: Atrial fibrillation : :Ordering Physician: BRI, : :SCOOTER Performed By: Dusty Downey : :Referring: SCOOTER [place] : + + Interpretation Summary Afib with controlled rate. Normal LV size and wall thickness; normal wall motion and LV systolic function. EF is 55-60%. Severe biatrial enlargement. No significant valvular abnormalities. No prior study available for comparison. Procedure: A two-dimensional transthoracic echocardiogram with color flow and Doppler was performed. The study quality was technically adequate. There is no prior echocardiogram noted for this patient. The patient was in atrial fibrillation with heart rates between 53-68 bpm during the exam. Left Ventricle: The left ventricle is normal in size and wall thickness. Left ventricular systolic function is normal. The ejection fraction is estimated to be 55-60%. There are no focal wall motion abnormalities. Diastolic function could not be accurately assessed due to atrial fibrillation. Right Ventricle: The right ventricle is normal in size and function. Atria: Both atria are severely dilated. The interatrial septum grossly appears intact with no obvious evidence for an atrial septal defect. Mitral Valve: The mitral valve is normal in structure and function. There is mild mitral regurgitation. Aortic Valve: The aortic valve is normal in structure and function. There is trace aortic regurgitation. Tricuspid Valve: The tricuspid valve is normal in structure and function. There is mild tricuspid regurgitation. The right ventricular systolic pressure is estimated to be at least 38 mmHg based on an estimated right atrial pressure of 15 mm Hg. Pulmonic Valve: The pulmonic valve is not well seen, but is grossly normal. There is trace pulmonic regurgitation. Great Vessels: The aortic root is normal size. The dimensions of the ascending aorta are normal. The IVC is dilated (diameter is greater than 2.1 cm) and it collapses less than 50% with a sniff. This suggests a high right atrial pressure of 15 mm Hg. Pericardium/ Pleura There is no pericardial effusion. There is no pleural effusion. MMode/2D Measurements & Calculations LVIDd: 4.5 cm LVOT diam: 1.9 cm LVIDs: 3.2 cm Ao root diam: 3.3 cm FS: 29.8 % asc Aorta Diam: 3.4 cm IVSd: 0.88 cm LVPWd: 0.89 cm LV nolasco. diameter/BSA (cm/m^2): 2.4 LV sys. diameter/BSA (cm/m^2): 1.7 LA A2 area: 27.7 cm2 RA long axis: 6.7 cm LA A4 area: 27.1 cm2 RA area: 29.2 cm2 LA length (vol): 6.6 cm RA vol: 107.9 ml LA vol: 95.8 ml RA : 58.2 ml/m2 LA vol index: 51.7 ml/m2 IVC diam: 2.5 cm RVD1 (basal): 3.5 cm TAPSE: 2.3 cm Doppler Measurements & Calculations Ao V2 max: 153.8 cm/sec LVOT Max Lukas: 113.2 cm/sec Ao V2 mean: 99.0 cm/sec LV V1 max P.1 mmHg Ao max P.5 mmHg LV V1 VTI: 23.0 cm Ao mean P.5 mmHg CLARI(I,D): 2.4 cm2 Ao V2 VTI: 27.3 cm CLARI(V,D): 2.1 cm2 sev ratio: 0.84 CLARI indexed to BSA (cm^2/m^2): 1.3 TR max lukas: 240.7 cm/sec MR VTI: 198.3 cm TR max P.2 mmHg SV(LVOT): 66.7 ml Electronically signed by: Luma Conn M.D. on Reading Physician:02/08/2022 01:19 PM
== END ==
PROVIDERS: PCP Internal Medicine; Referring Provider Internal Medicine; Visit Provider Internal Medicine
DX: I48.20 Chronic atrial fibrillation, unspecified (principal); I08.1 Rheumatic disorders of both mitral and tricuspid valves
CPT/HCPCS: 93306

== ENCOUNTER → 2023-07-03 06:56 | Outpatient (CLI) | payer MEDICARE, SELFPAY ==
[2023-07-03 08:10] LABS: Hematocrit 44.6 % (41-53); Hemoglobin 15.2 g/dL (13.5-17.5); Mean Corpuscular Hemoglobin 32.4 PG (26-34); Mean Corpuscular Volume 95.3 fL (80-100); Platelet Count 226 X10^3/uL (150-400); Red Blood Cell Count 4.68 X10^6/uL (4.5-5.9); Red Cell Distribution Width 13.7 % (11.6-14.8)
[2023-07-03 08:46] LABS: TSH w/ Reflex to FT4 3.08 uIU/mL (0.47-4.68)
[2023-07-03 16:02] LABS: Alanine Aminotransferase 37 IU/L (<50); Albumin 4.3 g/dL (3.5-5.0); Albumin Globulin Ratio 1.6 (1.0-2.8); Alkaline Phosphatase 112 U/L (38-126); Aspartate Aminotransferase 41 IU/L (17-59); BUN Creatinine Ratio 21.5 (6-22); Bilirubin Total 0.9 mg/dL (0.2-1.3); Blood Urea Nitrogen 23 mg/dL (9-20); Calcium 9.5 mg/dL (8.4-10.2); Carbon Dioxide 28 mmol/L (22-32); Chloride 107 mmol/L (98-107); Cholesterol 186 mg/dL (140-199); Estimated Glomerular Filt Rate > 60 mL/min (>60); Globulin 2.7 g/dL (1.7-4.1); Glucose 93 mg/dL (80-110); HDL Cholesterol 64 mg/dL (40-60); HEMOLYSIS < 15 (0-50); LDL Cholesterol Calculated 108 mg/dL (<100); Potassium 4.2 mmol/L (3.4-5.1); Sodium 140 mmol/L (137-145); Triglycerides 70 mg/dL (35-150)
[2023-07-03 16:30] LABS: Prostate Specific Antigen 1.19 ng/mL (0.10-4.00)
== END ==
LOC: LAB 06:57
PROVIDERS: PCP Internal Medicine; Referring Provider Internal Medicine; Visit Provider Internal Medicine
DX: I48.20 Chronic atrial fibrillation, unspecified (principal); E03.9 Hypothyroidism, unspecified; N40.1 Benign prostatic hyperplasia with lower urinary tract symptoms; N13.8 Other obstructive and reflux uropathy
CPT/HCPCS: 36415; 80053; 80061; 84153; 84443; 85027

== ENCOUNTER 2023-08-13 10:27 | Day surgery (SDC) | payer MEDICARE, SELFPAY ==
[2023-08-06 10:15] VITALS: BMI 23.9
[2023-08-13] VITALS (15 sets, daily range): BP systolic 114–158; BP diastolic 65–85; PULSE 23–67; RESP 12–20; TEMP 36.6–37.2; O2SAT 95–98; BMI 23.9; BMI 23.6
[2023-08-13] MEDS: LACTATED RINGERS 1,000 ML 21 ML IV (11:12)
[2023-08-13] MEDS: ACETAMINOPHEN 325 MG TABLET 975 MG PO (11:41)
--- NOTE | 2023-08-13 13:03 | PM.PREOP ---
Pre-operative Note Interval Note History & Physical reviewed/Exam performed by Physician: Yes Changes to H&P: No
[2023-08-13] MEDS: CEFAZOLIN 2 GM/100 ML PREMIX 100 ML IV (13:37)
[2023-08-13] MEDS: BUPIVACAINE 0.25% (PF) VIAL 30 ML INJ (13:50)
--- NOTE | 2023-08-13 13:52 | SUR.OPER ---
Supine on padded OR bed, head on pillow, arms padded and tucked at sides, legs uncrossed, safety belt at thigh, tape over blanket over lower legs .
--- NOTE | 2023-08-13 15:11 | P.OP_ITS ---
Operative Date/Time/Diagnoses Date of procedure: 08/13/23 Time of procedure: 15:12 Pre-op diagnosis: Bilateral inguinal hernia Post-op diagnosis: same Procedure & Clinicians Procedure: Laparoscopic repair of bilateral inguinal hernia Same procedure as scheduled: Yes Indications: Symptomatic bilateral inguinal hernia Surgeon: Michele Mcbride Driller Multiple Spindle: Gonzales Mancilla Anesthesia Type: General Operative Notes Findings: Bilateral indirect hernia left greater than right Specimen(s): none sent Estimated Blood Loss (mL): 30 Procedure in detail: The patient was brought to the operating room and placed supine on the table. Bilateral sequential compression devices were applied. General anesthesia was induced and they were intubated with an endotracheal tube. A razo cath was placed in sterile fashion. They received 900g clindaymycin prior to skin incision. They were prepped and draped in sterile fashion. A time out was performed to ensure the correct patient, procedure and necessary equipment within the operating room. The skin was infiltrated with 0.25% bupivicaine. A 1 cm supra umbilical midline incision was made. The fascia was sharply incised and the abdomen entered traumatically. A 10mm balloon port was placed and pneumoperitoneum was established at 15mm Hg. Inspection of the abdomen demonstrated no evidence of injury upon entry. Two 5 mm ports were then placed under direct visualization in the right and left lower quadrant lateral to the rectus muscle. Bilateral indirect hernia defects were observed left significantly larger than right. Starting on the left side the peritoneum 4 cm superior to the deep inguinal ring between the medial umbilical ligament and the anterior superior iliac spine was incised. The medial preperitoneal dissection was carried out into the space of Retzius bluntly, the bladder was swept inferiorly, the pubis and Ziggy's ligament were identified. Next attention was turned towards the lateral aspect of the peritoneal flap. The preperitoneal fat with the testicular vessels was carefully dissected off the inferior peritoneal flap. There was a large indirect hernia defect which was carefully skeletonized off of the cord. There was no evidence of a direct defect. A large Bard 3D Max mesh was then placed into the abdomen and positioned such that the myopectineal orifice was completely covered with good overlap on all sides. The peritoneal flap was then repositioned back to its original position and a running V lock suture was used to close the peritoneum such that no bowel could herniate into the preperitoneal space. The area was examined for hemostasis. Next the right side was addressed. The peritoneum 4 cm superior to the deep inguinal ring between the medial umbilical ligament and the anterior superior iliac spine was incised. The medial preperitoneal dissection was carried out into the space of Retzius bluntly, the bladder was swept inferiorly, the pubis and Ziggy's ligament were identified. Next attention was turned towards the lateral aspect of the peritoneal flap. The preperitoneal fat with the testicular vessels was carefully dissected off the inferior peritoneal flap. The indirect hernia sac was carefully skeletonized off of the cord. There was no direct right-sided defect. A large Bard 3D Max mesh was then placed into the abdomen and positioned such that the myopectineal orifice was completely covered with good overlap on all sides. The peritoneal flap was then repositioned back to its original position and a running V lock suture was used to close the peritoneum such that no bowel could herniate into the preperitoneal space. The area was examined for hemostasis. The 5mm trocars were removed under direct visualization and pneumoperitoneum was deflated through the umbilical trocar, The fascia at the umbilicus was closed with 0-Vicryl in figure of 8 fashion, skin closed with 4-0 Monocyl followed by Dermabond. The sponge and instrument count at the end of the case was correct. Both testicles were entirely within the scrotum at the end of the case. The patient emerged from anesthsia was extubated and transferred to recovery in stable condition. Complications: none Post-operative Condition: stable Disposition: same day surgery
[2023-08-13] MEDS: hydrOXYzine 50 MG/ML INJ 25 MG IM (15:36)
[2023-08-13] MEDS: OXYCODONE IR 5 MG TABLET PO ×2 (15:36→16:33)
[2023-08-13] MEDS: fentaNYL 100 MCG/2 ML INJ IV (15:49)
--- NOTE | 2023-08-13 17:42 | SUR.PHASEII ---
Pt assisted to sit at the edge of the bed. States he cannot stand and doesn't think that he can walk in to his condo with current pain level. Dr Mcbride notified. To come and see patient
--- NOTE | 2023-08-13 18:12 | SUR.PHASEII ---
Pt transferred to [id number] in stretcher with belongings bag by this RN. Pt awake, alert, complains of being woozy. SBAR report and handoff at [facility] to Micaela SWENSON
--- NOTE | 2023-08-13 18:37 | PC.NURSE ---
Pt arrived from PACU at 1805, A&Ox4, HR in 50s but otherwise VSS on RA. C/o 4/10 pain to abdomen, does not want pain meds at this time. 3 lap sites to abdomen, one with gauze, one bandaid and one with glue. 2 dressings with old drainage but intact. CMS+, bowel sounds hypoactive, lungs CTA. Patient and spouse oriented to room and call light. Bed in low position, call light within reach, SCDs on.
[2023-08-13] MEDS: DEXTROSE 5%-0.45% NS 1,000 ML 100 ML IV (18:46)
[2023-08-13] MEDS: SODIUM CHLORIDE 0.9% FLUSH 10 ML IV (22:02)
[2023-08-14 01:00] VITALS: O2SAT 96
[2023-08-14 02:00] VITALS: BP 139/78; PULSE 65; RESP 14; TEMP 37.1; O2SAT 97
[2023-08-14] MEDS: DEXTROSE 5%-0.45% NS 1,000 ML 100 ML IV (04:32)
[2023-08-14 05:00] VITALS: O2SAT 97
[2023-08-14 06:00] VITALS: BP 127/71; PULSE 60; RESP 15; TEMP 37.2; O2SAT 98
[2023-08-14 09:00] VITALS: O2SAT 98
--- NOTE | 2023-08-14 09:00 | CM.DANOTE ---
Initial DCP Assessment Visit Note Reviewed EMR and team rounds for status updates. Met with pt at bedside to introduce self and role, pt was found to be alert/oriented, and sitting upright in the recliner expressing readiness for d/c today. Pt lives independently with his spouse in their own home in [place]. His will arrive later this morning to transport him back home. Payor: Medicare Attending: Dr. Mcbride Pt is a 77 year-old M with a hx of worsening pain and bulge in his left-groin area, which has limited his ability to exercise or weight lift. Imaging did show a bilateral inguinal hernia, and it was surgically repaired late yesterday afternoon. Pt shared that he was kept overnight due to pain and difficulty with arousing from anesthesia. DCP will continue to follow and assist with any further evolving needs, however he declines any need for assistance at this time. Discharge Planning/Care Management CM Discharge Assessment Start: 08/14/23 08:57 Freq: Status: Active Protocol: Document 08/14/23 08:58 DPL (Rec: 08/14/23 09:00 DPL [id number]) Discharge Planning Assessment Assigned Roofer CLIVE Cardoza Advance Directives? No History Provided By Patient,Medical Record Has Patient been admitted in last 30 No days? Prior Living Arrangements House Household Members spouse Type of transporation used prior to Drives own vehicle admit Independent with ADL's Yes Is patient alert and oriented? Yes Comment No identified d/c needs at this time. Barriers to Discharge No Discharge Plan Home Transportation Arrangement Spouse Referrals Initiated None needed Whiteboard Updated in Patient Room with Yes name and ext. # of Roofer Review Status In Process Please Provide Date Initial DC 08/14/23 Assessment Was Performed Pre-Anesthesia Assessment Start: 08/06/23 10:15 Freq: Status: Complete Protocol: Document 08/06/23 10:15 CAB (Rec: 08/06/23 10:21 CAB [id number]) Pre-Anesthesia Assessment Preferred Name Ammon Patient Information Reviewed Via Chart Review Primary Care Provider Polo Unger Seen Specialist in Last 12 Months Yes Specialist Seen General surgeon Primary Language Togolese Fishing Vessel Operator Required No Height 175.26 cm Weight 73.482 kg Body Mass Index (BMI) 23.9 Barriers to Learning None Hx Anesthesia Reactions No Hx Family Anesthesia Reaction No Hx Malignant Hyperthermia No Hx Blood Transfusion Reaction No Anesthesia Review Requested No Hydraulic Barker Operator No alcohol intake current Smoking Status Never smoker Substance Use Type does not use Pain Present Pain Reported Patient is completely paralyzed or No completely immobile Mental Status Oriented to own ability Is patient on oxygen? No Does patient have RAYO/SOB No Hx Sleep Apnea No CPAP/BIPAP use not prescribed Currently Taking a Beta Mary No Can You Climb a Flight of Stairs Without Yes SOB Hx Chest Pain No Hx SOB No Hx Syncope or Dizziness No Anti-Coagulant Therapy Yes: Eliquis - hold 3 days prior per Surgeon Has a Slip Caster No Cardiac Testing No Hx Pacemaker/ICD No Pacemaker Rep Required? No Cardiac Clearance Received No Urinary Catheter Present No Hx Urinary Self Catheterization No Diabetes No Presence of External or Internal Medical No Devices Received a COVID vaccine? Yes Marital Status Lives With spouse Patient Discharge Plan Description Return Home Advance Directives? No
== END 2023-08-14 10:45 | disposition home or self-care (01) ==
LOC: OR 16:36 → AC 17:42
PROVIDERS: PCP Internal Medicine; Referring Provider Surgery; Visit Provider Surgery
PROC: 0YQ64ZZ Repair Left Inguinal Region, Percutaneous Endoscopic Approach (ICD-10-PCS; CPT 49650; principal; 2023-08-13 11:15)
DX: K40.90 Unilateral inguinal hernia, without obstruction or gangrene, not specified as recurrent (principal)
CPT/HCPCS: 49650; 82962; J0690; J1100; J2405; J2704; J3010; J3410

== ENCOUNTER → 2023-11-21 17:03 | Outpatient (CLI) | payer MEDICARE, SELFPAY ==
[2023-08-13 18:16] VITALS: BMI 23.6
[2023-11-21 18:27] LABS: Alanine Aminotransferase 23 IU/L (<50); Albumin 3.9 g/dL (3.5-5.0); Albumin Globulin Ratio 1.4 (1.0-2.8); Alkaline Phosphatase 92 U/L (38-126); Aspartate Aminotransferase 41 IU/L (17-59); Bilirubin Total 0.5 mg/dL (0.2-1.3); Bilirubin Unconjugated 0.1 mg/dL (0.0-1.1); Globulin 2.7 g/dL (1.7-4.1); HEMOLYSIS < 15 (0-50); Total Protein 6.6 g/dL (6.3-8.2)
== END ==
PROVIDERS: PCP Internal Medicine; Referring Provider Physician Assistant; Visit Provider Physician Assistant
DX: B35.1 Tinea unguium (principal)
CPT/HCPCS: 36415; 80076

== ENCOUNTER → 2023-12-09 17:00 | Outpatient (CLI) | payer MEDICARE, SELFPAY ==
[2023-08-13 18:16] VITALS: BMI 23.6
[2023-12-09 18:44] LABS: Alanine Aminotransferase 44 IU/L (<50); Albumin 3.9 g/dL (3.5-5.0); Albumin Globulin Ratio 1.4 (1.0-2.8); Alkaline Phosphatase 98 U/L (38-126); Aspartate Aminotransferase 69 IU/L (17-59); Bilirubin Total 0.5 mg/dL (0.2-1.3); Bilirubin Unconjugated 0.4 mg/dL (0.0-1.1); Globulin 2.7 g/dL (1.7-4.1); HEMOLYSIS < 15 (0-50); Total Protein 6.6 g/dL (6.3-8.2)
== END ==
LOC: LAB 17:01
PROVIDERS: PCP Internal Medicine; Referring Provider Physician Assistant; Visit Provider Physician Assistant
DX: B35.1 Tinea unguium (principal); L82.1 Other seborrheic keratosis; Z08 Encounter for follow-up examination after completed treatment for malignant neoplasm; Z85.828 Personal history of other malignant neoplasm of skin
CPT/HCPCS: 36415; 80076

== ENCOUNTER → 2023-12-23 16:56 | Outpatient (CLI) | payer MEDICARE, SELFPAY ==
[2023-08-13 18:16] VITALS: BMI 23.6
[2023-12-23 17:50] LABS: Alanine Aminotransferase 31 IU/L (<50); Albumin Globulin Ratio 1.5 (1.0-2.8); Alkaline Phosphatase 101 U/L (38-126); Aspartate Aminotransferase 49 IU/L (17-59); Bilirubin Total 0.5 mg/dL (0.2-1.3); Bilirubin Unconjugated 0.3 mg/dL (0.0-1.1); Globulin 2.7 g/dL (1.7-4.1); HEMOLYSIS 18 (0-50); Total Protein 6.7 g/dL (6.3-8.2)
== END ==
LOC: LAB 16:57
PROVIDERS: PCP Internal Medicine; Referring Provider Physician Assistant; Visit Provider Physician Assistant
DX: B35.1 Tinea unguium (principal)
CPT/HCPCS: 36415; 80076

== ENCOUNTER → 2025-01-24 09:02 | Outpatient (CLI) | payer MEDICARE, SELFPAY ==
[2023-08-13 18:16] VITALS: BMI 23.6
[2025-01-24 09:35] LABS: Hematocrit 42.4 % (41-53); Hemoglobin 14.7 g/dL (13.5-17.5); Mean Corpuscular HGB Conc 34.5 % (30-36); Mean Corpuscular Hemoglobin 32.5 PG (26-34); Mean Corpuscular Volume 94.3 fL (80-100); Platelet Count 236 X10^3/uL (150-400)
[2025-01-24 10:01] LABS: Alanine Aminotransferase 27 IU/L (<50); Albumin 4.3 g/dL (3.5-5.0); Albumin Globulin Ratio 1.6 (1.0-2.8); Alkaline Phosphatase 104 U/L (38-126); Blood Urea Nitrogen 28 mg/dL (9-20); Calcium 9.6 mg/dL (8.4-10.2); Carbon Dioxide 27 mmol/L (22-32); Chloride 102 mmol/L (98-107); Cholesterol 197 mg/dL (140-199); Estimated Glomerular Filt Rate 50 mL/min (>60); Globulin 2.7 g/dL (1.7-4.1); Glucose 101 mg/dL (70-99); HDL Cholesterol 80 mg/dL (40-60); HEMOLYSIS < 15 (0-50); Potassium 4.4 mmol/L (3.4-5.1); Sodium 136 mmol/L (137-145); Total Protein 7.0 g/dL (6.3-8.2); Triglycerides 62 mg/dL (35-150)
[2025-01-24 10:30] LABS: Prostate Specific Antigen 1.15 ng/mL (0.10-4.00)
[2025-01-24 10:31] LABS: TSH w/ Reflex to FT4 2.98 uIU/mL (0.47-4.68)
== END ==
PROVIDERS: PCP Internal Medicine; Referring Provider Internal Medicine; Visit Provider Internal Medicine
DX: E03.9 Hypothyroidism, unspecified (principal); N40.1 Benign prostatic hyperplasia with lower urinary tract symptoms; I48.20 Chronic atrial fibrillation, unspecified; N13.8 Other obstructive and reflux uropathy
CPT/HCPCS: 36415; 80053; 80061; 84153; 84443; 85027